=== PATIENT | male | born 1940 | race Caucasian/White ===

== ENCOUNTER 2017-04-27 12:52 | Emergency (ER) | payer MEDICARE, OTHER ==
[2017-04-27] MEDS ORDERED: HYDROmorphone 2 MG/ML SDV IVPUSH ONE (14:14)
[2017-04-27] MEDS ORDERED: Sodium Chloride 0.9% 1,000 ML IV SCH (14:15)
--- NOTE | 2017-04-27 14:17 | EDM.PDOC ---
ED HPI GENERAL MEDICAL PROBLEM - General Chief Complaint: Gastrointestinal Problem Stated Complaint: ABD PAIN Time Seen by Provider: 04/27/17 14:00 Source of Information: Reports: Patient History Limitations: Reports: No Limitations - History of Present Illness INITIAL COMMENTS - FREE TEXT/NARRATIVE: 76 yo male here initially with obstipation/low abdominal pain. No vomiting. No fever. Has a pHx of rectal prolapse and recurrent constipation. Has never had to seek medical care for the prolapse. Is not taking any tx for this recurrent constipation. Onset: Today Onset Date: 04/27/17 Duration: Hour(s): Location: Reports: Abdomen (low and rectum) Quality: Reports: Pressure, Other (cramping) Severity: Moderate Improves with: Reports: None Worsens with: Reports: None Context: Reports: Other (chronic constipation) Associated Symptoms: Reports: Loss of Appetite. 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) - Related Data Allergies Allergy/AdvReac Type Severity Reaction Status Date / Time metoclopramide HCl Allergy Tachycardia Verified 10/10/14 07:15 [From Reglan] Home Meds: Home Meds Clopidogrel [Plavix] 75 mg PO DAILY 10/09/14 [History] Esomeprazole Magnesium [Nexium] 40 mg PO DAILY 10/09/14 [History] Isosorbide Mononitrate [Imdur] 120 mg PO BID 10/09/14 [History] Lisinopril [Zestril] 20 mg PO BID 10/09/14 [History] Metoprolol Succinate [Toprol Xl] 100 mg PO BID 10/09/14 [History] Nitroglycerin [Nitrostat] 0.4 mg SL ASDIRECTED PRN 10/09/14 [History] Rosuvastatin [Crestor] 20 mg PO BEDTIME 10/09/14 [History] Aspirin [Ecotrin] 81 mg PO DAILY 04/27/17 [History] Past Medical History HEENT History: Reports: Retinal Detachment Cardiovascular History: Reports: Bypass, CAD, Heart Valve Replacement, Hypertension, [place], Stents Gastrointestinal History: Reports: Chronic Constipation, Hemorrhoids Genitourinary History: Reports: Prostate Disorder Endocrine/Metabolic History: Reports: Obesity/BMI 30+ - Infectious Disease History Infectious Disease History: Reports: Hepatitis B - Past Surgical History HEENT Surgical History: Reports: Cataract Surgery, Detached Retina, Tonsillectomy Cardiovascular Surgical History: Reports: Coronary Artery Bypass, Coronary Artery Stent GI Surgical History: Reports: Cholecystectomy, Colonoscopy, Polypectomy Social & Family History - Tobacco Use Smoking Status *Q: Never Smoker Second Hand Smoke Exposure: No - Caffeine Use Caffeine Use: Reports: Coffee - Alcohol Use Days Per Week of Alcohol Use: 3 Number of Drinks Per Day: 2 Total Drinks Per Week: 6 - Recreational Drug Use Recreational Drug Use: No Drug Use in Last 12 Months: No ED ROS GENERAL - Review of Systems Review Of Systems: See Below Constitutional: Reports: No Symptoms HEENT: Reports: No Symptoms Respiratory: Reports: No Symptoms Cardiovascular: Reports: No Symptoms Endocrine: Reports: No Symptoms GI/Abdominal: Reports: Abdominal Pain (low), Constipation, Decreased Appetite. Denies: Diarrhea, Nausea, Stool Incontinence, Vomiting : Reports: No Symptoms Musculoskeletal: Reports: No Symptoms Skin: Reports: No Symptoms Neurological: Reports: No Symptoms Psychiatric: Reports: No Symptoms ED EXAM, GI/ABD - Physical Exam Exam: See Below Exam Limited By: No Limitations General Appearance: Alert, WD/WN, Mild Distress Eyes: Bilateral: Normal Appearance Ears: Normal External Exam, Normal Canal, Hearing Grossly Normal Nose: Normal Inspection, Normal Mucosa, No Blood Throat/Mouth: Normal Inspection, Normal Lips, Normal Teeth, Normal Oropharynx, Normal Voice, No Airway Compromise Head: Atraumatic, Normocephalic Neck: Normal Inspection, Supple Respiratory/Chest: No Respiratory Distress, Lungs Clear, Normal Breath Sounds, No Accessory Muscle Use Cardiovascular: Regular Rate, Rhythm, No Edema GI/Abdominal Exam: Normal Bowel Sounds, Soft, Non-Tender Rectal (Males) Exam: Other (rectal prolapse.) Back Exam: No: CVA Tenderness (R), CVA Tenderness (L) Extremities: Normal Inspection, Normal Range of Motion, Non-Tender, No Pedal Edema Neurological: Alert, Oriented, CN II-XII Intact, Normal Cognition, No Motor/ Sensory Deficits Psychiatric: Normal Affect, Normal Mood Skin Exam: Warm, Dry, Intact, Normal Color, No Rash Lymphatic: No Adenopathy Course - Vital Signs Text/Narrative:: Unable to reduce in ER with only lubrication. Discussed with Dr. Eldridge. Will start and IV, administer Dilaudid for pain. Anesth called for sedation. No improvement after atttempted reduction under mild sedation. Dr. Eldridge to see in the ER Last Recorded V/S: Last Vital Signs Temp 36.8 C 04/27/17 13:42 Pulse 66 04/27/17 14:55 Resp 14 04/27/17 14:55 BP 148/74 H 04/27/17 14:55 Pulse Ox 98 04/27/17 14:55 - Orders/Labs/Meds Orders: Active Orders 24 hr Category Date Time Status Enema [RC] ASDIRECTED Care 04/27/17 13:17 Inactive Sodium Chloride 0.9% [Normal Saline] 1,000 ml Med 04/27/17 14:15 Active IV ASDIRECTED Medication Orders Sodium Chloride (Normal Saline) 1,000 mls @ 125 mls/hr IV ASDIRECTED PRIYA Last Admin: 04/27/17 14:52 Dose: 125 mls/hr Meds: Medications Generic Name Dose Route Start Last Admin Trade Name Freq PRN Reason Stop Dose Admin Sodium Chloride 1,000 mls @ 125 mls/hr 04/27/17 14:15 04/27/17 14:52 Normal Saline IV 125 mls/hr ASDIRECTED PRIYA Administration Discontinued Medications Generic Name Dose Route Start Last Admin Trade Name Freq PRN Reason Stop Dose Admin Hydromorphone HCl 0.5 mg 04/27/17 14:14 04/27/17 14:53 Dilaudid IVPUSH 04/27/17 14:15 0.5 mg ONETIME ONE Administration Morphine Sulfate 4 mg 04/27/17 16:53 Morphine IVPUSH 04/27/17 16:54 ONETIME ONE Departure - Departure Time of Disposition: 17:06 Disposition: Home, Self-Care 01 Clinical Impression: Obstipation, External hemorrhoid - Discharge Information Referrals: Arnol Mullen MD [Primary Care Provider] - Forms: ED Department Discharge - My Orders Last 24 Hours: My Active Orders 04/27/17 13:17 Enema [RC] ASDIRECTED 04/27/17 14:15 Sodium Chloride 0.9% [Normal Saline] 1,000 ml IV ASDIRECTED - Assessment/Plan Last 24 Hours: My Active Orders 04/27/17 13:17 Enema [RC] ASDIRECTED 04/27/17 14:15 Sodium Chloride 0.9% [Normal Saline] 1,000 ml IV ASDIRECTED
[2017-04-27] MEDS ORDERED: Midazolam 1 MG/ML 2 ML SDV IV ONE (15:02)
[2017-04-27] MEDS ORDERED: fentaNYL 100 MCG/2 ML SDV IV ONE (15:02)
[2017-04-27] MEDS ORDERED: Propofol 200 MG/20 ML SDV IV ONE (15:02)
[2017-04-27] MEDS ORDERED: Morphine 4 MG/ML Syringe IVPUSH ONE (16:53)
[2017-04-27 17:38] VITALS: BP 159/82
--- NOTE | 2017-04-27 21:09 | ER ---
DATE SEEN: 04/27/2017 HISTORY: This 76-year-old gentleman is seen in the emergency room for evaluation of perianal pain and swelling. The patient was constipated this morning and had a large bowel movement and since then has had painful swollen hemorrhoids. He has been having worsening constipation problems for the last 6 months and has noted episodes of severe constipation at least half a dozen times. I reviewed his center chart and he did have a colonoscopy by Dr. Richmond 2-1/2 years ago and no significant abnormalities were noted. He did have a history of colon polyps. The patient has not had a bleeding abdominal pain or other concerning findings. He denies any fever, sweats, or chills. PHYSICAL EXAMINATION: GENERAL: Reveals a pleasant gentleman who is resting comfortably. Manual reduction of them has been tried prior to my arrival. He has received IV sedation for this. On exam, he has circumferential prolapsing internal hemorrhoids with edema. There is no necrosis. I did manually reduce these after approximately 15 minutes of direct pressure. There is still some edema of the external hemorrhoidal skin. His sphincter is tight and tender. ASSESSMENT: Prolapsed internal hemorrhoids. PLAN: Findings were reviewed with the patient and his and he will be discharged and sit in the bathtub at home and keep these reduced. He will follow up with me in the morning at the clinic for followup. I suspect he may need hemorrhoidectomy in the near future. /[id number] FREDY/YASMANI VINSON
== END 2017-04-27 17:35 | disposition home or self-care (01) ==
LOC: SUPCPDRO 12:52 → FB.ED 12:52
DX: K64.4 Residual hemorrhoidal skin tags (principal)
CPT/HCPCS: 96361; 96374; 96375; 99283; J1170; J2250; J2270; J2704; J3010; J7040; 99156-QZ

== ENCOUNTER 2024-02-29 07:37 | Day surgery (SDC) | payer MEDICARE ==
[2024-02-29] MEDS ORDERED: Lidocaine 2% 100 MG/5 ML Syringe IVPUSH ONE (07:38)
[2024-02-29] MEDS ORDERED: Propofol 200 MG/20 ML SDV IV ONE (07:38)
[2024-02-29] MEDS ORDERED: Sodium Chloride 0.9% 10 ML Syringe FLUSH PRN (07:45)
[2024-02-29] MEDS: Lactated Ringers 1,000 ML IV SCH (09:00)
[2024-02-29 12:19] VITALS: BP 144/73; PULSE 49
== END 2024-02-29 12:00 | disposition home or self-care (01) ==
LOC: FB.SDS 07:37
PROVIDERS: ATTEND Surgery
DX: Z12.11 Encounter for screening for malignant neoplasm of colon (principal); D12.3 Benign neoplasm of transverse colon; D12.2 Benign neoplasm of ascending colon; K57.30 Diverticulosis of large intestine without perforation or abscess without bleeding; I12.9 Hypertensive chronic kidney disease with stage 1 through stage 4 chronic kidney disease, or unspecified chronic kidney disease; N18.30 Chronic kidney disease, stage 3 unspecified; I25.118 Atherosclerotic heart disease of native coronary artery with other forms of angina pectoris; K21.9 Gastro-esophageal reflux disease without esophagitis; E78.00 Pure hypercholesterolemia, unspecified; Z86.010 Personal history of colon polyps; Z79.899 Other long term (current) drug therapy
CPT/HCPCS: 00811; 88305; 99100; J2704; J7120